=== PATIENT | male | born 1985 | race Caucasian/White ===

== ENCOUNTER 2020-11-21 08:29 | Emergency (ER) | payer OTHER, SELFPAY ==
[~2020-11-21] VITALS: Ht 170.2 cm; Wt 65.8 kg
[2020-11-21 08:33] VITALS: BP 128/83
--- NOTE | 2020-11-21 08:33 | NUR ---
ARRIVAL PT ARRIVED TO ED WITH C/O LEFT LOWER BACK PAIN THAT RADIATES TO HIS LEFT LEG. PT REPORTS YESTERDAY HE WAS MOVING BOXES AND FEELS THAT HE HAS INJURED HIS SCIATIC NERVE. PT HAS STIFFNESS TO LOWER BACK. PT DENIES IS NUMBNESS TO EXTREMETIES. BEDSIDE MONITORS APPLIED. VITAL SIGNS STABLE. BED IN LOW LOCKED POSITION.
[2020-11-21] MEDS ORDERED: TORADOL IM STA (08:53)
[2020-11-21] MEDS ORDERED: NORFLEX IM STA (08:53)
[2020-11-21] MEDS ORDERED: TORADOL ONE (08:54)
[2020-11-21 09:03] VITALS: BP 123/83
--- NOTE | 2020-11-21 09:07 | ER.PDOC ---
General Chief Complaint: Lower Back Pain or Injury Stated Complaint: BACK PAIN Time seen by : 09:03 Source: patient Exam Limitations: no limitations History of Present Illness Initial Comments Left lower back pain after limited lifting boxes yesterday. Pain is worse with movement and he feels his muscles spasm. No numbness or tingling of the lower extremities. No urinary or bowel incontinence. Timing/Duration: yesterday Severity/Quality: moderate Radiation: buttocks (left) Method of Injury: bending, lifting, twisted Associated Symptoms: muscle spasms, lower back pain Allergies: Coded Allergies: No Known Allergies (Unverified , 11/21/20) Past Medical History Medical History: no pertinent history Surgical History: no surgical history Family History Significant Family History: no pertinent family hx Social History Smoking: non-smoker Alcohol Use: none Drug Use: none Review of Systems Constitutional: no symptoms reported EENTM: no symptoms reported Respiratory: no symptoms reported Cardiovascular: no symptoms reported Gastrointestinal: no symptoms reported Musculoskeletal: see HPI All Other Systems: Reviewed and Negative Physical Exam General Appearance: No Apparent Distress, WD/WN Neck: Non-Tender, Normal Alignment Cardiovascular/Respiratory: Regular Rate, Rhythm, No M/R/G, Normal Peripheral Pulses, No JVD, Normal Breath Sounds, No Respiratory Distress Gastrointestinal: Normal Bowel Sounds, No Organomegaly, No Pulsatile Mass, Non Tender, Soft Back: Muscle Spasm (left paraspinous muscles of L spine), Other (Tenderness left paraspinous muscles of L-spine) Extremities: No Evidence of Injury, Normal Range of Motion, Non-Tender, No Peda l Edema, Pelvis Stable Neuro/Psych: Alert, pmo analyst nml/symmetrical, mood/effect nml, No Motor/Sensory Deficits, Relexes nml Skin: Normal Color, Warm/Dry Results/Orders Results/Orders Orders - CAL DE LA ROSA MD Ketorolac Tromethamine (Toradol) (11/21/20 08:53) Orphenadrine Citrate (Norflex) (11/21/20 08:53) Ketorolac Tromethamine (Toradol) (11/21/20 08:54) Vital Signs Date Time Temp Pulse Resp B/P (MAP) Pulse Ox O2 Delivery O2 Flow Rate FiO2 11/21/20 08:33 97.8 80 18 128/83 (98) 97 Room Air 7/1/21 08:33 97.8 80 18 11/21/20 08:33 97.8 80 18 97 Administered Medications Medications (Trade) Dose Ordered Sig/Wm Route PRN Reason Start Time Stop Time Status Last Admin Dose Admin Ketorolac Tromethamine (Toradol) 60 mg STAT STAT IM 11/21/20 08:53 11/21/20 08:54 DC 11/21/20 09:01 60 MG Progress Progress Patient given a Toradol shot and he is feeling better. Pain is improved. ER DEPART Departure Time of Disposition: 09:05 Disposition: 01 HOME / SELF CARE / HOMELESS Impression: Primary Impression: Low back pain Condition: Improved Additional Instructions: Tylenol with codeine Ibuprofen OTC 600 mg 3 times a day for 5 to 7 days with food. Flexeril Follow-up PCP in 3 to 5 days Return to ED if worsening symptoms or concerns Duration or Time Spent with Pa: 10 min Problem Qualifiers Primary Impression: Low back pain Chronicity: acute Back pain laterality: left Sciatica presence: with sciatica Sciatica laterality: sciatica of left side Qualified Codes: M54.42 - Lumbago with sciatica, left side CAL DE LA ROSA MD Nov 21, 2020 09:06
== END 2020-11-21 09:15 | disposition home or self-care (01) ==
LOC: ER 08:29
DX: M54.42 Lumbago with sciatica, left side (principal); Z79.1 Long term (current) use of non-steroidal anti-inflammatories (NSAID)
CPT/HCPCS: 96372; 99283; J1885

== ENCOUNTER 2020-11-27 00:21 | Emergency (ER) | payer OTHER ==
[~2020-11-27] VITALS: Ht 170.2 cm; Wt 69.4 kg
[2020-11-27 01:01] VITALS: BP 128/86
[2020-11-27] MEDS ORDERED: DEPO-MEDROL IM STA (01:07)
[2020-11-27] MEDS ORDERED: DEPO-MEDROL ONE (01:13)
--- NOTE | 2020-11-27 01:18 | ER.PDOC ---
General Chief Complaint: Lower Back Pain or Injury Stated Complaint: BACK PAIN Time seen by MD: 01:10 Source: patient History of Present Illness Initial Comments Patient return to the ER after been seen for the same 3 days ago. Patient was diagnosed with sciatalgia and treated with Ibuprofen and T3, Patient symptoms improved and did not resolved the factors that cause his sciatic to hurt. Patient request 3 days off to recover Timing/Duration: week Severity/Quality: moderate Radiation: buttocks, upper legs Method of Injury: unknown Associated Symptoms: other (buttck pain with radiation to the thigh) Prior symptoms/Treatment: Similar symptoms previous Allergies: Coded Allergies: No Known Allergies (Unverified , 11/21/20) Past Medical History Medical History: no pertinent history Surgical History: no surgical history Social History Alcohol Use: none Drug Use: none Review of Systems Constitutional: no symptoms reported EENTM: no symptoms reported Respiratory: no symptoms reported Cardiovascular: no symptoms reported Gastrointestinal: no symptoms reported Genitourinary: no symptoms reported Musculoskeletal: no symptoms reported Skin: no symptoms reported Psychiatric/Neurological: see HPI Physical Exam General Appearance: No Apparent Distress, WD/WN Neck: Non-Tender, Normal Alignment Cardiovascular/Respiratory: Regular Rate, Rhythm, Normal Peripheral Pulses Gastrointestinal: Normal Bowel Sounds, Non Tender Back: Normal Inspection, No CVA Tenderness, No Vertebral Tenderness Extremities: No Evidence of Injury, Normal Range of Motion, Non-Tender Neuro/Psych: No Motor/Sensory Deficits, Relexes nml, Other (Sciatic Notch tenderness with radiculapathic pain) Results/Orders Results/Orders Orders - PETERSON DYKES MD Methylprednisolone Acetate (Depo-Medrol) (11/27/20 01:07) Vital Signs Date Time Temp Pulse Resp B/P (MAP) Pulse Ox O2 Delivery O2 Flow Rate FiO2 11/27/20 01:01 97.9 98 16 97 11/27/20 01:01 97.9 98 16 128/86 (100) 97 Room Air 11/27/20 01:01 97.9 98 16 ER DEPART Departure Time of Disposition: 01:18 Disposition: 01 HOME / SELF CARE / HOMELESS Impression: Primary Impression: Sciatic leg pain Additional Impression: Sciatic mononeuropathy Condition: Improved Referrals: PCP,UNKNOWN (PCP) PRIMARY CARE PROVIDER Additional Instructions: PAtient was given instruction about how to avoid new episodes as well I gave him 1 day off from work Duration or Time Spent with Pa: 10 Return to Work/School Can a patient return to work?: No (1 day) Can a patient return to school: Yes Problem Qualifiers PETERSON DYKES MD Nov 27, 2020 01:18
--- NOTE | 2020-11-27 01:25 | NUR ---
DISCHARGE WENT TO DISCHARGE PATIENT, PATIENT VERY ANGRY, STATES HE WANTS TO SPEAK WITH THE ER PHYSICIAN. EDP NOTIFIED
--- NOTE | 2020-11-27 01:26 | NUR ---
UPDATE EDP AT BEDSIDE TALKING WITH PATIENT
[2020-11-27] MEDS ORDERED: DEMEROL ONE (01:35)
[2020-11-27 01:44] VITALS: BP 119/79
[2020-11-27] MEDS ORDERED: DEMEROL IM PRN (02:00)
--- NOTE | 2020-11-27 02:05 | NUR ---
UPDATE AFTER DISCHARGE OF PATIENT CAME TO ABLE SEAMAN DEMANDING TO SPEAK WITH ER PHYSICMARILOU, EDP STATES HE HAS DONE EVERYTHING HE CAN FOR PATIENT. FULL SERVICE SUPERVISOR NOTIFIED OF SITUATION.
== END 2020-11-27 01:45 | disposition home or self-care (01) ==
LOC: ER 00:21
DX: G58.8 Other specified mononeuropathies (principal)
CPT/HCPCS: 96372; 99284; J2175; J1030